=== PATIENT | female | born 1970 | race American Indian/Alaskan Native ===

== ENCOUNTER 2021-10-31 10:36 | Emergency (ER) | payer SELFPAY ==
[2021-10-31] MEDS ORDERED: KETOROLAC 10 MG TAB PO ONE (15:17)
[2021-10-31] MEDS ORDERED: CYCLOBENZAPRINE 10 MG TAB PO ONE (15:17)
[2021-10-31] MEDS ORDERED: oxyCODONE /ACETAMINOPHEN 5-325MG TAB PO ONE (15:17)
[2021-10-31] MEDS ORDERED: traMADol 50 MG TAB PO ONE (15:44)
[2021-10-31 16:06] LABS: Mucus,Urine 3+ /HPF
--- NOTE | 2021-10-31 16:07 | Emergency Department Report ---
ED Abdominal Pain HPI - General Chief Complaint: Back Pain/Injury Stated Complaint: RIGHT SIDE PAIN/COVID Time Seen by Provider: 10/31/21 14:57 Source: EMS Mode of arrival: Stretcher Limitations: No Limitations - History of Present Illness Initial Comments: 51-year-old black female with a past medical history of hypertension, hepatitis C, bipolar disorder, and status post lap brandon several years ago presents to the emergency department for evaluation of right side pain. She denies injury or trauma but states that she developed pain last night and has been getting progressively worse since then. She states that pain is associated with some nausea and lower back pain. She denies active vomiting, abdominal pain, dysuria, fever, and dizziness. She states that pain is 10 out of 10 and worse when she moves a certain way or with palpation. MD Complaint: flank pain -: Gradual, Last night Location: diffuse Radiation: none Migration to: no migration Severity: severe Severity scale (0 -10): 10 Quality: aching Worsens With: movement, other (Palpation) Associated Symptoms: nausea. denies: vomiting, diarrhea, fever, chills, dysuria, hematemesis, hematochezia, melena, hematuria, anorexia, syncope - Related Data Previous Rx's Medication Instructions Recorded Last Taken Type Naproxen [Naprosyn] 500 mg PO BID PRN #14 tab 10/31/21 Unknown Rx methOCARBAMOL [Robaxin TAB] 750 mg PO Q8H PRN #30 tab 10/31/21 Unknown Rx Allergies Allergy/AdvReac Type Severity Reaction Status Date / Time No Known Allergies Allergy Verified 10/31/21 10:46 ED Review of Systems ROS: Stated complaint: RIGHT SIDE PAIN/COVID Other details as noted in HPI Comment: All other systems reviewed and negative Constitutional: denies: chills, fever, malaise, weakness Eyes: denies: vision change ENT: denies: congestion Respiratory: denies: shortness of breath Cardiovascular: denies: chest pain, palpitations, dyspnea on exertion, orthopnea, edema, syncope, paroxysmal nocturnal dyspnea Gastrointestinal: nausea. denies: abdominal pain, vomiting, diarrhea, hematemesis, melena, hematochezia Genitourinary: denies: urgency, dysuria, frequency, hematuria, discharge Musculoskeletal: back pain Skin: denies: rash, lesions Neurological: headache ED Past Medical Hx - Past Medical History Previous Medical History?: Yes Hx Hypertension: Yes Hx Psychiatric Treatment: Yes (BIPOLAR) - Medications Home Medications: Home Medications Medication Instructions Recorded Confirmed Last Taken Type Naproxen [Naprosyn] 500 mg PO BID PRN #14 tab 10/31/21 Unknown Rx methOCARBAMOL [Robaxin TAB] 750 mg PO Q8H PRN #30 tab 10/31/21 Unknown Rx ED Physical Exam - General Limitations: No Limitations General appearance: alert, in no apparent distress - Head Head exam: Present: atraumatic, normocephalic - Eye Eye exam: Present: normal appearance. Absent: conjunctival injection, periorbital swelling, periorbital tenderness - Neck Neck exam: Present: normal inspection, full ROM. Absent: tenderness, lymphadenopathy - Respiratory Respiratory exam: Present: normal lung sounds bilaterally. Absent: respiratory distress, wheezes, rales, rhonchi, stridor, chest wall tenderness - Cardiovascular Cardiovascular Exam: Present: regular rate, normal heart sounds - Expanded Cardiovascular Exam Expanded 1 - tenderness - GI/Abdominal GI/Abdominal exam: Present: soft, normal bowel sounds. Absent: distended, tenderness, guarding, rebound, rigid - Extremities Exam Extremities exam: Present: normal inspection, normal capillary refill. Absent: pedal edema, joint swelling, calf tenderness - Back Exam Back exam: Present: normal inspection. Absent: CVA tenderness (R), CVA tenderness (L), vertebral tenderness - Neurological Exam Neurological exam: Present: alert, oriented X3 - Psychiatric Psychiatric exam: Present: normal affect, normal mood - Skin Skin exam: Present: warm, dry, intact, normal color ED Course Vital Signs 10/31/21 10:39 Pulse Rate 71 Respiratory 16 Rate Blood Pressure 121/86 [Left] O2 Sat by Pulse 98 Oximetry - Reevaluation(s) Reevaluation #1: 10/31/21 16:35 Pain slightly improved after medication. ED Medical Decision Making - Radiology Data Radiology results: report reviewed, image reviewed Right ribs x-ray with PA chest: FINDINGS: SUPPORT DEVICES: None. HEART / MEDIASTINUM: No significant abnormality. LUNGS / PLEURA: Lungs are clear. Costophrenic sulci are sharp. No pneumothorax. RIBS: No acute rib fracture identified. No suspicious lesion identified. Moderate rightward curvature of thoracic spine and leftward curvature lumbar spine. IMPRESSION: 1. No acute rib fracture. No significant fibrosis. - Medical Decision Making 51-year-old black female with a past medical history of hypertension, hepatitis C, bipolar disorder, and status post lap brandon several years ago presents to the emergency department for evaluation of right side pain. She denies injury or trauma but states that she developed pain last night and has been getting progressively worse since then. She states that pain is associated with some nausea and lower back pain. She denies active vomiting, abdominal pain, dysuria, fever, and dizziness. She states that pain is 10 out of 10 and worse when she moves a certain way or with palpation. Physical exam unremarkable. Urine negative for UTI, and right rib x-ray without any acute abnormalities noted. Pain likely musculoskeletal in origin. Patient be discharged home with Robaxin and naproxen to take as needed for pain and advised to follow-up with her primary care provider if worsening symptoms. She is advised to return to the emergency department for any concerning symptoms. She verbalizes understanding of and agreement with plan of care. Critical care attestation.: If time is entered above; I have spent that time in minutes in the direct care of this critically ill patient, excluding procedure time. ED Disposition Clinical Impression: Right flank pain Disposition: 01 HOME / SELF CARE / HOMELESS Is pt being admited?: No Does the pt Need Aspirin: No Condition: Stable Instructions: Flank Pain, Adult, [id number], Musculoskeletal Pain Additional Instructions: Take medications as prescribed. Follow-up with your primary care provider if no improvement or worsening symptoms. Return to the emergency department as needed. Prescriptions: Naproxen [Naprosyn] 500 mg PO BID PRN #14 tab PRN Reason: Pain, Moderate (4-6) methOCARBAMOL [Robaxin TAB] 750 mg PO Q8H PRN #30 tab PRN Reason: Pain, Moderate (4-6) Referrals: NEVILLE LOVING MD [Staff Physician] - 3-5 Days Time of Disposition: 16:38
[2021-10-31 16:11] LABS: Bilirubin,Urine Negative (Negative); Color,Urine Amber (Yellow)
[2021-10-31 16:12] LABS: Blood,Urine Negative (Negative); Urobilinogen,Urine < 2.0 mg/dL (<2.0)
--- NOTE | 2021-10-31 16:29 | XRay Report ---
XR ribs UNI w PA Chest 3+V RT INDICATION / CLINICAL INFORMATION: rib pain COMPARISON: None available. FINDINGS: SUPPORT DEVICES: None. HEART / MEDIASTINUM: No significant abnormality. LUNGS / PLEURA: Lungs are clear. Costophrenic sulci are sharp. No pneumothorax. RIBS: No acute rib fracture identified. No suspicious lesion identified. Moderate rightward curvature of thoracic spine and leftward curvature lumbar spine. IMPRESSION: 1. No acute rib fracture. No significant fibrosis. Signer Name: Oscar Drummond MD Signed: 10/31/2021 4:25 PM Workstation Name: [id number]
[2021-10-31 17:27] VITALS: BP 133/67
== END 2021-10-31 17:28 | disposition home or self-care (01) ==
LOC: ED 10:36
DX: R10.9 Unspecified abdominal pain (principal); I10 Essential (primary) hypertension; F31.9 Bipolar disorder, unspecified
CPT/HCPCS: 81001; 99284